=== PATIENT | female | born 1950 | race Caucasian/White ===

== ENCOUNTER 2023-05-02 05:24 | Inpatient (IN) | payer MEDICARE ==
[~2023-05-02] VITALS: Ht 162.6 cm; Wt 95.3 kg
[2023-05-02] MEDS ORDERED: IV NORMAL SALINE 500 ML BAG IV ONE (05:45)
[2023-05-02 06:02] LABS: BASOPHILS % (AUTO) 0.4 % (0.0-2.0); EOSINOPHILS % (AUTO) 0.5 % (0.0-7.0); HEMATOCRIT 41.6 % (31.2-41.9); HEMOGLOBIN 14.1 g/dL (10.9-14.3); LYMPHOCYTES % (AUTO) 23.6 % (20.5-51.5); MEAN CORPUSCULAR HEMOGLOBIN 30.3 uug (24.7-32.8); MEAN CORPUSCULAR HGB CONC 34 g/dL (32.3-35.6); MEAN CORPUSCULAR VOLUME 89.6 fL (75.5-95.3); MONOCYTES # (AUTO) 0.6 K/uL (0.1-1.30); NEUTROPHILS # (AUTO) 5.9 K/uL (1.8-8.9); NEUTROPHILS % (AUTO) 68.5 % (38.5-71.5); PLATELET COUNT (AUTO) 297 K/uL (179-408); RED BLOOD CELL COUNT(AUTO) 4.64 MIL/uL (3.63-4.92); RED CELL DISTRIBUTION WIDTH 14.1 % (12.3-17.7); WHITE BLOOD COUNT (AUTO) 8.6 K/uL (3.8-11.8)
[2023-05-02 06:06] LABS: DIFFERENTIAL COMMENT 1
[2023-05-02 06:15] LABS: AMMONIA < 10 umol/L (11-32)
[2023-05-02 06:25] LABS: THYROID STIMULATING HORMONE 4.712 mIU/mL (0.358-3.740)
[2023-05-02 06:34] LABS: ETHANOL < 3 MG/DL (0-10)
[2023-05-02 07:39] LABS: CARBON DIOXIDE 26 mmol/L (21-32); CHLORIDE 105 mmol/L (98-107); GLUCOSE 100 mg/dL (74-106); POTASSIUM 3.4 mmol/L (3.5-5.1); SODIUM SERUM 141 mmol/L (136-145)
[2023-05-02 07:40] LABS: BILIRUBIN,DIRECT 0.2 mg/dL (0.0-0.2); BILIRUBIN,TOTAL 0.9 mg/dL (0.2-1.0); CREATININE 0.8 mg/dL (0.6-1.3); UREA NITROGEN, BLOOD 17 mg/dL (7-18)
[2023-05-02 07:41] LABS: ALANINE AMINOTRANSFERASE 21 U/L (14-59); ALBUMIN 3.8 g/dL (3.4-5.0); ALKALINE PHOSPHATASE 79 U/L (50-136); ASPARTATE AMINOTRANSFERASE 14 U/L (15-37)
[2023-05-02 07:42] LABS: TOTAL PROTEIN, SERUM 7.4 g/dL (6.4-8.2)
[2023-05-02 08:11] LABS: *BILIRUBIN,URIN NEGATIVE (NEGATIVE); *CLARITY,URINE CLEAR (CLEAR); *COLOR,URINE YELLOW (YELLOW); *KETONES,URINE NEGATIVE (NEGATIVE); *PROTEIN,URINE NEGATIVE (NEGATIVE); *UROBILINOGEN,URINE 0.2 E.U./dl (NORMAL); LEUKOCYTE ESTERASE ,URINE NEGATIVE (NEGATIVE); NITRITE, URINE NEGATIVE (NEGATIVE); UGLUCOSE NEGATIVE (NEGATIVE)
[2023-05-02 08:17] LABS: *BLOOD, URINE TRACE (NEGATIVE)
[2023-05-02 08:39] LABS: *AMPHETAMINE, URINE NEGATIVE (NEGATIVE); *BARBITURATE, URINE NEGATIVE (NEGATIVE); *BENZODIAZEPINE, URINE NEGATIVE (NEGATIVE); *CANNABINOID, URINE NEGATIVE (NEGATIVE); *COCCAINE, URINE NEGATIVE (NEGATIVE); *OPIATE, URINE NEGATIVE (NEGATIVE); *PHENCYCLIDINE SCREEN,URINE NEGATIVE (NEGATIVE)
[2023-05-02 08:40] LABS: FENTANYL, URINE NEGATIVE (NEGATIVE)
[2023-05-02 09:46] LABS: BACTERIA,URINE MODERATE /HPF (NONE SEEN); RBC,URINE 0-3 /HPF (0-3); SQUAMOUS EPITHELIAL CELL,UR FEW /HPF (NONE SEEN); WBC,URINE 0-3 /HPF (0-3)
[2023-05-02] MEDS ORDERED: hydrALAZINE HCL 20 MG/1 ML VIAL IV ONE (11:15)
[2023-05-02] MEDS ORDERED: hydrALAZINE HCL 20 MG/1 ML VIAL ONE (11:16)
[2023-05-02] MEDS ORDERED: ACETAMINOPHEN ES 500 MG TABLET ONE (15:12)
[2023-05-02] MEDS ORDERED: ACETAMINOPHEN 325 MG TABLET PO ONE (15:15)
[2023-05-02] MEDS ORDERED: MAGNESIUM HYDROXIDE 30 ML LIQUID UDC PO PRN (16:45)
[2023-05-02] MEDS ORDERED: hydrALAZINE HCL 25 MG TABLET PO PRN (16:45)
[2023-05-02] MEDS ORDERED: TEMAZEPAM 15 MG CAPSULE PO PRN (16:45)
[2023-05-02] MEDS ORDERED: ONDANSETRON 4 MG/2 ML VIAL IV PRN (16:45)
[2023-05-02] MEDS ORDERED: ENOXAPARIN SODIUM 40 MG/0.4 ML DISP.SYRIN SQ ONE (17:00)
[2023-05-02] MEDS: AMLODIPINE 5 MG TABLET PO SCH ×2 (17:54→21:17)
[2023-05-02] MEDS: CEFTRIAXONE 1 G in IV DEXTROSE 5% 50 ML IV SCH (17:54)
[2023-05-02] MEDS: AZITHROMYCIN IV 500 MG in IV DEXTROSE 5% 250 ML IV SCH (18:00)
[2023-05-02] MEDS: ACETAMINOPHEN 325 MG TABLET PO PRN (18:15)
[2023-05-02 20:35] VITALS: BP 126/65; TEMP 97.8; O2SAT 95
[2023-05-02] MEDS: DOCUSATE SODIUM 100 MG CAPSULE PO SCH (21:18)
[2023-05-03 00:08] VITALS: BP 152/56; TEMP 98; O2SAT 97
[2023-05-03 04:28] VITALS: BP 137/70; TEMP 97.9; O2SAT 97
[2023-05-03] MEDS: PANTOPRAZOLE SODIUM 40 MG TABLET.DR PO SCH (06:15)
[2023-05-03 07:16] LABS: ALANINE AMINOTRANSFERASE 12 U/L (14-59); ALBUMIN 3.2 g/dL (3.4-5.0); ALKALINE PHOSPHATASE 71 U/L (50-136); ASPARTATE AMINOTRANSFERASE 11 U/L (15-37); BASOPHILS % (AUTO) 0.7 % (0.0-2.0); BILIRUBIN,TOTAL 0.8 mg/dL (0.2-1.0); CALCIUM 8.4 mg/dL (8.5-10.1); CARBON DIOXIDE 24 mmol/L (21-32); CHLORIDE 107 mmol/L (98-107); CREATININE 0.6 mg/dL (0.6-1.3); EOSINOPHILS # (AUTO) 0.2 K/uL (0.0-0.7); EOSINOPHILS % (AUTO) 2.8 % (0.0-7.0); GLUCOSE 92 mg/dL (74-106); HEMATOCRIT 39.6 % (31.2-41.9); HEMOGLOBIN 13.2 g/dL (10.9-14.3); LYMPHOCYTES % (AUTO) 31.2 % (20.5-51.5); MAGNESIUM 2.2 mg/dL (1.8-2.4); MEAN CORPUSCULAR HGB CONC 33 g/dL (32.3-35.6); MEAN CORPUSCULAR VOLUME 90.2 fL (75.5-95.3); MONOCYTES # (AUTO) 0.5 K/uL (0.1-1.30); MONOCYTES % (AUTO) 7.8 % (0.0-11.0); NEUTROPHILS # (AUTO) 3.8 K/uL (1.8-8.9); NEUTROPHILS % (AUTO) 57.5 % (38.5-71.5); PLATELET COUNT (AUTO) 258 K/uL (179-408); POTASSIUM 3.5 mmol/L (3.5-5.1); RED BLOOD CELL COUNT(AUTO) 4.39 MIL/uL (3.63-4.92); RED CELL DISTRIBUTION WIDTH 14.4 % (12.3-17.7); SODIUM SERUM 140 mmol/L (136-145); TOTAL PROTEIN, SERUM 6.4 g/dL (6.4-8.2); UREA NITROGEN, BLOOD 13 mg/dL (7-18); WHITE BLOOD COUNT (AUTO) 6.6 K/uL (3.8-11.8)
[2023-05-03 09:27] VITALS: BP 135/60; TEMP 97.6; O2SAT 95
[2023-05-03] MEDS: ASPIRIN EC 81 MG TABLET.DR PO SCH (09:43)
[2023-05-03] MEDS: AMLODIPINE 5 MG TABLET PO SCH ×2 (09:44→21:00)
[2023-05-03 12:00] VITALS: BP 121/72; TEMP 97.6; O2SAT 98
[2023-05-03] MEDS: ACETAMINOPHEN 325 MG TABLET PO PRN (14:07)
[2023-05-03] MEDS ORDERED: ASPI81TA31 PO (15:45)
[2023-05-03] MEDS ORDERED: LEVO25TA9 PO (15:45)
[2023-05-03] MEDS ORDERED: ATEN25TA PO (15:45)
[2023-05-03] MEDS ORDERED: SACU1TAB7 PO (15:45)
[2023-05-03] MEDS ORDERED: ICOS1CAP PO (15:45)
[2023-05-03 16:08] VITALS: BP 117/60; TEMP 97.7; O2SAT 97
[2023-05-03] MEDS: CEFTRIAXONE 1 G in IV DEXTROSE 5% 50 ML IV SCH (17:52)
[2023-05-03] MEDS: AZITHROMYCIN IV 500 MG in IV DEXTROSE 5% 250 ML IV SCH (18:45)
[2023-05-03 20:00] VITALS: BP 100/62; TEMP 98.2; O2SAT 96
[2023-05-03] MEDS ORDERED: ENOXAPARIN SODIUM 40 MG/0.4 ML DISP.SYRIN SQ SCH (21:00)
[2023-05-03] MEDS: DOCUSATE SODIUM 100 MG CAPSULE PO SCH (21:27)
[2023-05-04] VITALS: BP 122/67; TEMP 98; O2SAT 97
[2023-05-04 04:00] VITALS: BP 125/68; TEMP 98; O2SAT 98
[2023-05-04] MEDS: PANTOPRAZOLE SODIUM 40 MG TABLET.DR PO SCH (06:23)
[2023-05-04 09:06] VITALS: BP 130/75; TEMP 97; O2SAT 96
[2023-05-04] MEDS: AMLODIPINE 5 MG TABLET PO SCH (09:18)
[2023-05-04] MEDS: ASPIRIN EC 81 MG TABLET.DR PO SCH (09:18)
[2023-05-04 12:00] VITALS: BP 130/70; TEMP 97.8; O2SAT 97
[2023-05-04] MEDS ORDERED: ATOR10TA PO (13:48)
[2023-05-04 16:19] VITALS: BP 113/74; TEMP 98; O2SAT 97
== END 2023-05-04 16:34 | disposition home or self-care (01) | DRG 77 ==
LOC: ER 05:28 → TRANSITION 15:27 → TELE3 16:41
PROVIDERS: ADMIT Internal Medicine; ATTEND Internal Medicine
DX: I67.4 Hypertensive encephalopathy (principal); I21.A1 Myocardial infarction type 2; I50.31 Acute diastolic (congestive) heart failure; I11.0 Hypertensive heart disease with heart failure; R41.89 Other symptoms and signs involving cognitive functions and awareness; Z79.890 Hormone replacement therapy; I07.1 Rheumatic tricuspid insufficiency; I45.9 Conduction disorder, unspecified; Z79.82 Long term (current) use of aspirin; I70.0 Atherosclerosis of aorta; E03.9 Hypothyroidism, unspecified; E78.5 Hyperlipidemia, unspecified; E66.3 Overweight; Z68.36 Body mass index [BMI] 36.0-36.9, adult; K04.7 Periapical abscess without sinus; R60.0 Localized edema; E87.6 Hypokalemia; I44.4 Left anterior fascicular block; Z91.041 Radiographic dye allergy status
CPT/HCPCS: 36415; 70450; 70486; 71045; 83605; 83735; 84100; 84443; 84484; 85025; 87040; 93005; 93307; A4606; A4663; A9150; G0378; G0480; J0360; J0456; J0696; J1650; J7040; J7050